=== PATIENT | female | born 1950 ===

== ENCOUNTER 2017-08-18 00:18 | Inpatient (IN) | payer MEDICARE ==
[2017-08-17 14:40] LABS: INR 0.96
--- NOTE | 2017-08-17 17:06 | RADIOLOGY IMAGING REPORT ---
FACILITY: [facility] - [place] PATIENT NAME: Yesica Waters : 1950 MR: [id number] V: [id number] EXAM DATE: ORDERING PHYSICIAN: LADONNA SANDOVAL TECHNOLOGIST: Location: [facility] - [place] Patient: Yesica Waters : 1950 Visit/Account:[id number] Date of Sevice: 08/16/2017 Exam type: LEGS BILAT STANDING HIPS-ANKLE History: PRE OP Comparison: May 15, 2013. Findings: There is moderate narrowing of the medial compartment of the left knee with marginal spurring which i s advanced when compared the prior study. This mild narrowing the medial compartment of the right kn ee with marginal spurring which has also advanced when compared to the prior study. Appears to be at least moderate degenerative changes involving the left joint. IMPRESSION: 1. Moderate narrowing the medial compartment left knee with marginal spurring which has advanced whe n compared the prior study Mild narrowing the medial compartment of the right knee with marginal spurring which has advanced whe n compared to the prior study Report Dictated By: Adrianna Zhao MD at 08/17/2017 5:00 PM Report E-Signed By: Adrianna Zhao MD at 08/17/2017 5:02 PM MARTHAN:ZEKE
[2017-08-18] VITALS (16 sets, daily range): BP systolic 99–137; BP diastolic 55–117
[~2017-08-18] VITALS: Ht 167.6 cm; Wt 73.0 kg
[~2017-08-18 00:18] MED LIST: ANAS1TAB34 PO; ASCO1TAB5 PO; ASPI81TA94 PO; CALC600T63 PO; CHOL10005 PO; GARL1TAB9 PO; GLUC-198 PO; LEVO50TA86 PO; PARO-243 PO; PSYL0.5241 PO; RANI-324 PO; TURM500C4 PO; UBID30CA27 PO; VITA1CAP46 PO; ceFAZolin(*) 1 GM VIAL 1 GM in NS(*) 0.9% 100 ML ADDVANT BAG 100 ML IVPB ONE; cloNIDine EPIDUR INJ 100MCG/ML 40 MCG, ROPIVACAINE 0.5% 20 ML VIAL 25 ML, EPINEPHrine H... INJ ONE
[2017-08-18] MEDS ORDERED: MORPHINE PF 5 MG/10 ML AMP ONE (06:44)
[2017-08-18] MEDS ORDERED: LIDOCAINE MPF 1% 5 ML VIAL ONE (06:48)
[2017-08-18] MEDS ORDERED: ONDANSETRON 4 MG/2 ML VIAL ONE (06:48)
[2017-08-18] MEDS ORDERED: PROPOFOL EMUL(*) 10MG/ML 20 ML 40 ML ONE (06:48)
[2017-08-18] MEDS ORDERED: DEXAMETHASONE SOD PHOS 10MG/ML ONE (06:48)
--- NOTE | 2017-08-18 08:08 | RADIOLOGY IMAGING REPORT ---
FACILITY: [facility] - [place] PATIENT NAME: Yesica Waters : 1950 MR: [id number] V: [id number] EXAM DATE: ORDERING PHYSICIAN: LADONNA SANDOVAL TECHNOLOGIST: [place] [facility] [place] : 1950 Visit/Account:[id number] Date of Sevice: 08/18/2017 KNEE LIMITED LEFT HISTORY: PRE-OP L TKA, PHYSICIAN ORDER PREOP LEFT LATERAL KNEE 2 views FINDINGS: Moderately severe patellofemoral osteoarthrosis with patellar spurring and sclerotic bony erosive hailey nges noted in the patellofemoral joint. Minimal suprapatellar joint effusion. IMPRESSION: Patellofemoral DJD changes. Minimal suprapatellar joint effusion. Report Dictated By: Ruben Tracy MD at 08/18/2017 8:03 AM Report E-Signed By: Ruben Tracy MD at 08/18/2017 8:04 AM WSN:[id number]
[2017-08-18] MEDS ORDERED: ceFAZolin 1 GM VIAL IVP ONE (08:40)
[2017-08-18] MEDS ORDERED: LIDOCAINE/SOD BICARB 8.4% SYR ID ONE (08:40)
[2017-08-18] MEDS ORDERED: FAMOTIDINE 20 MG TAB PO ONE (08:40)
[2017-08-18] MEDS ORDERED: cloNIDine EPIDUR INJ 100MCG/ML 40 MCG, ROPIVACAINE 0.5% 20 ML VIAL 25 ML, EPINEPHrine H... INJ ONE (08:40)
[2017-08-18] MEDS ORDERED: NORMOSOL R SOLN(*) 1000 ML BAG 1,000 ML IV PRN (08:40)
[2017-08-18] MEDS ORDERED: TRANEXAMIC AC 1000 MG/10ML SDV 1,000 MG in DEXTROSE 5% 50 ML BAG 50 ML IV ONE (08:40)
[2017-08-18] MEDS ORDERED: MIDAZOLAM 2 MG/2 ML VIAL IVP PRN (08:40)
[2017-08-18] MEDS ORDERED: LACTATED RINGER 3000 ML BAG IR ONE (08:51)
[2017-08-18] MEDS ORDERED: KCL/D5LR 20 MEQ/1000 ML PREMIX 1,000 ML IV PRN (09:25)
[2017-08-18] MEDS ORDERED: MORPHINE SULFATE 30 MG PCA IV PRN (09:25)
[2017-08-18] MEDS ORDERED: FLUSH 10 ML SYR IVP PRN (09:25)
[2017-08-18] MEDS ORDERED: ACETAMINOPHEN 500 MG TAB PO PRN (09:25)
[2017-08-18] MEDS ORDERED: MAGNESIUM CITRATE 300 ML BTL PO PRN (09:25)
[2017-08-18] MEDS ORDERED: NALOXONE HCL 0.4 MG/ML VIAL IVP PRN (09:25)
[2017-08-18] MEDS ORDERED: PROMETHAZINE 25 MG/ML 1 ML AMP IVP PRN (09:25)
[2017-08-18] MEDS ORDERED: diphenhydrAMINE 25 MG CAP PO PRN ×2 (09:25→09:40)
[2017-08-18] MEDS ORDERED: ONDANSETRON 4 MG/2 ML VIAL IVP PRN (09:25)
--- NOTE | 2017-08-18 10:22 | RADIOLOGY IMAGING REPORT ---
FACILITY: [facility] - [place] PATIENT NAME: Yesica Waters : 1950 MR: [id number] V: [id number] EXAM DATE: ORDERING PHYSICIAN: LADONNA SANDOVAL TECHNOLOGIST: Location: [facility] Patient: Yesica Waters : 1950 Visit/Account:[id number] Date of Sevice: 08/18/2017 KNEE LIMITED LEFT Provided history: POSTOP LTKA Additional pertinent history: none Views obtained: 2 views COMPARISON STUDIES: Preoperative views earlier today FINDINGS: Interim 3 compartment prosthetic placement in expected position and alignment. No fractures . Small joint effusion and minor gas in the joint, to be expected. IMPRESSION: Expected postoperative appearance after TKR. Report Dictated By: Negrito Ambriz MD at 08/18/2017 10:17 AM Report E-Signed By: Negrito Ambriz MD at 08/18/2017 10:18 AM WSN:[id number]
--- NOTE | 2017-08-18 13:39 | Hospitalist Consultation ---
History of Present Illness Requesting Physician Dr. Sandoval Reason for Consult Anticoagulation History of Present Illness This patient was admitted for knee replacement surgery. It is reported that the surgery went well and was without complication. History Problems: (1) Hypothyroid (2) Breast cancer Home Meds Reported Medications Ranitidine Hcl (ZANTAC) 150 Mg Tablet, 150 MG PO BID, TAB 08/11/17 Psyllium Husk (METAMUCIL) 0.52 Gm Capsule, 1 TBS PO BID, CAPSULE 08/11/17 Garlic (GARLIC) 1 Each Tablet, 1 EACH PO QDAY 08/11/17 Vitamin B Complex (VITAMIN B COMPLEX) 1 Each Capsule, 1 EACH PO QDAY, CAPSULE 08/11/17 Calcium Carbonate (CALCIUM) 600 Mg Tablet, 2 TAB PO QDAY 08/11/17 Ubidecarenone (COQ-10) 30 Mg Capsule, 60 MG PO QDAY, CAPSULE 08/11/17 Turmeric/Turmeric Root Extract (Turmeric 500 mg Capsule) 450 Mg-50 Mg Capsule, 500 MG PO BID 08/11/17 Ascorbic Acid/Vitamin E/Biotin (Hair Skin Nails-Biotin Gummies) 1 Each Tab.chew , 2000 MG PO QDAY 08/11/17 Glucosa Martel 2KCL/Chondroitin Martel (GLUCOSAMINE & CHONDROITIN CAP) 1 Each Capsule, 1 EACH PO QDAY, CAPSULE 08/11/17 Cholecalciferol (Vitamin D3) (VITAMIN D3) 1,000 Unit Tablet, 2000 UNIT PO QDAY, TAB 08/11/17 Aspirin (ASPIRIN) 81 Mg Tab.chew, 81 MG PO QDAY, TAB.CHEW 08/11/17 Paroxetine Hcl (PAXIL) 20 Mg Tablet, 1 TAB PO QDAY, TAB 08/11/17 Anastrozole (ANASTROZOLE) 1 Mg Tablet, 1 MG PO QDAY 08/11/17 Levothyroxine Sodium (LEVOTHYROXINE SODIUM) 50 Mcg Tablet, 25 MCG PO QDAY, TAB 08/11/17 Allergies: Coded Allergies: No Known Drug Allergies (Unverified , 08/11/17) Patient History: FH: breast cancer MOTHER FH: melanoma BROTHER OR SISTER FH: prostate cancer BROTHER OR SISTER Hx Smoking: No Smoking Status: Never Smoker Caffeine Intake: Coffee Caffeine/Cups Per Day: 1 Hx Alcohol Use: Yes Alcohol Used: Wine Hx Substance Use Disorder: No Social Drug Use: Never History of IV Drug Use: No Review of Systems All Systems Reviewed/Normal: Yes Exam Vital Signs Vital Signs Date Time Temp Pulse Resp B/P (MAP) Pulse Ox O2 Delivery O2 Flow Rate FiO2 08/18/17 13:00 61 99/56 (70) 78 08/18/17 10:36 Nasal Cannula 2.0 08/18/17 10:24 98.6 20 Neuro: No Gross deficits Eyes: PERRLA Cardiovascular: Regular Rate and Rhythm Respiratory: Clear to Auscultation GI: Abd Soft and Non-Tender Extremities: No Edema Integumentary: No Cyanosis Medical Decision Making Data Points Result Diagram: 08/18/17 0925 Assessment and Plan Problems: (1) S/P knee replacement Assessment & Plan: She is on aspirin prophylaxis. (2) Breast cancer Assessment & Plan: She is on chronic treatment with anastrozole. (3) Hypothyroid Assessment & Plan: She is on chronic treatment with Synthroid. Copies to: LADONNA SANDOVAL MD Venous Thromboembolism Antithrombotics Is Pt On Any Antithrombotics?: No Exam Sepsis Risk: No Definite Risk MANDY SWAIN DO Aug 18, 2017 13:39
[2017-08-18] MEDS: ceFAZolin 1 GM VIAL IVPB SCH ×2 (15:08→22:49)
[2017-08-18] MEDS: RANITIDINE HCL 150 MG TAB PO SCH (20:51)
[2017-08-18] MEDS ORDERED: RANITIDINE 150 MG PO SCH (21:00)
[2017-08-19 00:23] VITALS: BP 112/66
[2017-08-19] MEDS: RANITIDINE HCL 150 MG TAB PO SCH ×2 (00:45→08:46)
[2017-08-19 05:39] LABS: PLATELET COUNT, AUTOMATED 234 K/uL (150-450)
[2017-08-19] MEDS ORDERED: LEVOTHYROXINE SOD 0.05 MG TAB PO SCH (06:00)
[2017-08-19] MEDS ORDERED: ASPI-764 PO (06:28)
[2017-08-19] MEDS: ceFAZolin 1 GM VIAL IVPB SCH (07:21)
[2017-08-19 07:22] VITALS: BP 97/61
[2017-08-19] MEDS ORDERED: OXYC-865 PO (07:31)
[2017-08-19] MEDS ORDERED: OXYC-823 PO (07:32)
[2017-08-19] MEDS ORDERED: ASPIRIN 325 MG ENTERIC COATED PO SCH (09:00)
[2017-08-19] MEDS ORDERED: CALCIUM CARBONATE 600 MG TAB PO SCH (09:00)
[2017-08-19] MEDS ORDERED: PARoxetine HCL 20 MG TAB PO SCH (09:00)
[2017-08-19] MEDS ORDERED: ANASTROZOLE 1 MG TAB PO SCH (09:00)
[2017-08-19] MEDS ORDERED: CHOLECALCIFEROL 1000 UNIT TAB PO SCH (09:00)
--- NOTE | 2017-08-19 13:59 | OPERATIVE REPORT 1 ---
EVENT DATE: August 18, 2017 SURGEON: Conrado Chris MD ANESTHESIOLOGIST: Antwon Victoria MD ANESTHESIA: General plus spinal. DIRECTOR OF INSTITUTIONAL RESEARCH: Riki Garcias PA-C PREOPERATIVE DIAGNOSIS Left knee degenerative joint disease. POSTOPERATIVE DIAGNOSIS Left knee degenerative joint disease. PROCEDURE PERFORMED Left total knee arthroplasty. ESTIMATED BLOOD LOSS 150 INTRAVENOUS FLUIDS Crystalloid 1400. No colloid. TOURNIQUET TIME 59 SPECIMENS No specimens. COMPLICATIONS No complications. IMPLANTS USED DePuy Attune 4 left PS femur cut at 5 degrees with 9 off the end, 4 fixed bearing tibia, and a 35 anatomic patella with a size 4 x 5 mm PS insert. SUMMARY OF PROCEDURE The patient was brought into the operating room and placed on the OR table in the supine position, at which point she was then given the spinal anesthetic and placed back in the supine position for her general anesthesia. The left lower extremity was prepped and draped in the usual sterile fashion. The limb was exsanguinated, and the tourniquet was inflated. A utilitarian anterior incision was made and deepened through skin and subcutaneous tissue. The fluid was clear upon making the medial parapatellar arthrotomy. There was significant arthritic change with a very large anterior osteophyte on the proximal aspect of the articular surface. The fat pad was removed, as were the menisci. The ACL was divided. The rongeur was used to remove bone spurs around the notch so that we could get a better idea of where the notch actually was. We then drilled into the central portion and then placed the jeniffer. We initially placed the distal cutting block for a 5-degree cut, taking 9 off the end which was done. The block confirmed adequacy of the cut. We then checked for size, and it looked like a 4 would fit best. The Gilberto Wing confirmed this. We made our cuts with 3 degrees of external rotation. Posterior osteophytes were removed, and the capsule was stripped. We then cut the box for a 4, trialed, and then drilled our lugs. The trial was removed, and we moved on to the tibia. Intramedullary guidance was used for the tibia. Rotation was marked, followed by setting 2 mm below the deficient medial side, but this only cut 8 below the intact lateral side, so I went down one mm and then made our cut. There was quite a bit of eburnation medially. This was drilled. Extra osteophytes were removed. We trialed a 3 and a 4. The 3 had a little less posterolateral overhang than the 4, but the 4 had much better [id number] coverage and was less likely to subside, so we went with a 4. This was positioned, and then the keel punch was used, and we prepared the full trial. We got good extension with the 5 mm insert using the femoral trial in place. We measured the patella at 24 mm, cut off 9.5, and then selected a 35. We drilled the lugs for this and then prepared the cement. The cement was mixed. We placed blocks at the femur and tibia and then progressed with cementation, starting with the tibia, the insert, the femur, and then the patella. The joint was held locked and loaded while full polymerization occurred. Excess cement had been removed. The additional TXA was given. The tourniquet was deflated at 59 minutes. Unipolar cautery was used for hemostasis where necessary. We trialed again with the 5. It looked like it would be sufficient, so we selected the final insert as a 5, placed this, irrigated again as we had before placing the insert , and then closed with #1 Vicryl for the capsule, 3-0 Vicryl for the subcutaneous tissue, and then 4-0 Monocryl for the subcuticular layer with a Dermabond strip applied. She was awakened and transferred to the recovery area in stable condition. EDUARDO
== END 2017-08-19 12:15 | disposition home or self-care (01) | DRG 470 ==
LOC: OR 00:18 → MED 10:25
PROVIDERS: ADMIT Orthopaedic Surgery Hand Surgery; ATTEND Orthopaedic Surgery Hand Surgery
PROC: 0SRD0J9 Replacement of Left Knee Joint with Synthetic Substitute, Cemented, Open Approach (ICD-10-PCS; principal; 2017-08-18 06:56)
DX: M17.12 Unilateral primary osteoarthritis, left knee (principal); E03.9 Hypothyroidism, unspecified; G47.33 Obstructive sleep apnea (adult) (pediatric); K21.9 Gastro-esophageal reflux disease without esophagitis; Z85.3 Personal history of malignant neoplasm of breast; Z99.81 Dependence on supplemental oxygen; Z90.710 Acquired absence of both cervix and uterus; Z92.3 Personal history of irradiation
CPT/HCPCS: 36415; 77073; 85014; 85018; 85025; 85610; 86850; 86900; 86901; 97161; C1713; C1776; J0171; J0690; J0735; J1100; J1885; J2001; J2250; J2270; J2405; J2550; J2704; J2795; J3480; J7050; J7060; J9999; Q0163